=== PATIENT | male | born 1955 | race Hispanic/Latino ===

== ENCOUNTER 2017-05-11 16:35 | Emergency (ER) | payer BC ==
[2017-05-11 16:42] VITALS: RESP 18
[2017-05-11] MEDS ORDERED: Lidocaine 5% Patch TD STA (17:25)
[2017-05-11] MEDS ORDERED: Lidocaine 5% Patch TD ONE (17:47)
--- NOTE | 2017-05-11 17:50 | C.PDOC ---
History Of Present Illness 61 y/o male with chronic back pain. pain 8/10, lower back. Time Seen by Provider: 05/11/17 16:56 Chief Complaint (Nursing): Back Pain Past Medical History Vital Signs: Last Vital Signs Temp 97.9 F 05/11/17 18:15 Pulse 78 05/11/17 18:15 Resp 18 05/11/17 18:20 BP 147/83 05/11/17 18:15 Pulse Ox 98 06/03/17 14:36 - Medical History PMH: Back Problems, Hypercholesterolemia Family History: States: Unknown Family Hx - Social History Hx Alcohol Use: Yes Hx Substance Use: No Review Of Systems Constitutional: Negative for: Fever, Chills Cardiovascular: Negative for: Chest Pain, Palpitations Respiratory: Negative for: Cough, Shortness of Breath Gastrointestinal: Negative for: Nausea, Vomiting Musculoskeletal: Positive for: Back Pain. Negative for: Neck Pain, Shoulder Pain Neurological: Negative for: Weakness, Numbness, Incoordination, Confusion, Seizures, Altered Mental Status Physical Exam - Physical Exam Appears: Non-toxic, No Acute Distress Head: No Atraumatic, No Normacephalic, No Tenderness Neck: No Midline Cervical Tenderness, Supple Respiratory: Normal Breath Sounds Extremity: Normal ROM Neurological/Psych: Oriented x3 Gait: Steady ED Course And Treatment O2 Sat by Pulse Oximetry: 98 Disposition Counseled Patient/Family Regarding: Diagnosis, Need For Followup, Rx Given - Disposition Referrals: Dada Sol MD [Non-Staff] - Disposition: HOME/ ROUTINE Disposition Time: 17:48 Condition: IMPROVED Prescriptions: Ibuprofen [Motrin] 600 mg PO TID #15 tab Instructions: Chronic Back Pain (ED) Forms: General Discharge Instructions, [facility] ([place]), Work Excuse - POA Present On Arrival: None - Clinical Impression Clinical Impression: Low back pain
[2017-05-11 18:15] VITALS: BP 147/83; PULSE 78; TEMP 97.9
[2017-06-03 14:37] VITALS: O2SAT 98
== END 2017-05-11 18:22 | disposition home or self-care (01) ==
LOC: C.ER 16:35
DX: M54.5 Low back pain (principal)
CPT/HCPCS: 96372; 99284; J1885